=== PATIENT | female | born 1950 | race African-American/Black ===

== ENCOUNTER 2019-01-26 08:30 | Outpatient (CLI) | payer MEDICARE ==
--- NOTE | 2019-01-26 11:18 | RAD ---
XR Barium Swallow Esophagus HISTORY: Food gets stuck in the esophagus. Patient has had a history of gastric bypass surgery. COMPARISON: None. FINDINGS: A biphasic esophagram was performed. Swallowing was grossly normal. Tertiary contractions are present. There is unobstructed flow of contr ast through the esophagus into the stomach. A small diverticulum is seen on the right side at the junction of the middle and distal thirds of the esophagus. A small hiatal hernia is present. No spont aneous GE reflux or reflux during Valsalva maneuver was noted. IMPRESSION: 1. Presbyesophagus 2. 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 Small hiatal hernia
== END 2019-01-26 08:31 | disposition home or self-care (01) ==
LOC: RAD 08:30
PROVIDERS: ATTEND Surgery
DX: R13.10 Dysphagia, unspecified (principal); Q39.6 Congenital diverticulum of esophagus; K22.8 Other specified diseases of esophagus; K44.9 Diaphragmatic hernia without obstruction or gangrene
CPT/HCPCS: 74220